=== PATIENT | female | born 1945 | race Caucasian/White ===

== ENCOUNTER 2019-01-10 11:00 | Outpatient (RCR) | payer MEDICARE ==
[~2019-01-10 11:00] MED LIST: ACYCLOVIR200 MG/5 M PO; ALENDRONATE70 MG PO; AMOXICILLIN875 MG PO; BACLOFEN10 MG PO; BACTRIM DS1 TAB PO; BETIMOL0.5 % OU; CEPHALEXIN500 MG PO; CETIRIZINE10 MG PO; CIPRO500 MG PO; CIPROFLOXACN500 MG PO; CORAL CALCIU1000 MG PO; CRANBERRY1 TAB OR; CURCUMIN XX; FISH OIL1000 MG PO; FISH OIL500 MG OR; FLONASE NASAL50 MCG; FLOXIN OTIC0.3 % AU; FLUARIX QUADRIV1 INJ IM; FLUOR OP OP; FLUOROMETHOL0.1 % OS; GLUCOSAMINE1 TA1 PO; KEFLEX500 M1 PO; LEVOTHYROXIN25 MC1 PO; LEVOTHYROXIN50 MC1 PO; LEVOTHYROXIN75 MC1 PO; LORTAB5 PO; MACRODANTIN100 MG PO; MULTIVITAM10 OR; MULTIVITAMIN PO; NAPROSYN500 MG PO; PRILOSEC20 MG PO; PROBIOTIC1 TAB PO; XALATAN 0.005%2.5 ML OP; ZYRTEC10 MG PO
== END 2019-01-10 12:00 | disposition home or self-care (01) ==
LOC: PT 11:00
PROVIDERS: ATTEND Physician Assistant
DX: M54.32 Sciatica, left side (principal)

== ENCOUNTER 2022-02-11 20:37 | Emergency (ER) | payer MEDICARE ==
[~2022-02-11] VITALS: Ht 162.6 cm; Wt 86.4 kg
[2022-02-11 22:13] LABS: HEMATOCRIT 38.7 % (37.0-47.0); HEMOGLOBIN 12.9 g/dl (12.0-16.0); IMMATURE GRANULOCYTES 0.2 % (0.0-5.0); MEAN CELL VOLUME 85.8 fL CALC (80.0-100.0); MEAN CORPUSCULAR HGB 28.6 pG CALC (26.0-32.0); MEAN CORPUSCULAR HGB CONC 33.3 g/dL CAL (32.0-36.0); NEUT# 3.69 thou/uL (2.00-7.15); RED BLOOD COUNT 4.51 mill/uL (4.20-5.60); RED CELL DISTRI WIDTH 15.4 % (11.5-15.5)
[2022-02-11 22:16] LABS: URINE BILIRUBIN - DIPSTICK NEGATIVE (NEGATIVE); URINE BLOOD DIPSTICK NEGATIVE (NEGATIVE); URINE COLOR YELLOW; URINE GLUCOSE - DIPSTICK NEGATIVE (NEGATIVE); URINE KETONE NEGATIVE (NEGATIVE); URINE LEUK ESTERASE NEGATIVE (NEGATIVE); URINE PH 7.5 (4.5-8.0); URINE PROTEIN - DIPSTICK NEGATIVE (NEG-TRACE); URINE UROBILINOGEN - DIPSTICK 0.2 E.U./dL (0.2)
[2022-02-11 22:23] LABS: URINE NITRITE - DIPSTICK NEGATIVE (Negative)
[2022-02-11 22:37] LABS: ALBUMIN 3.9 g/dL (3.2-5.0); ALKALINE PHOSPHATASE 86 u/l (38-126); AMYLASE 68 u/l (30-110); ANION GAP 11 (6-22 (CALC)); BILIRUBIN, TOTAL 0.6 mg/dL (0.0-1.4); BUN 13 mg/dL (8-23); BUN/CREATININE RATIO 17 (12-20 (CALC)); CARBON DIOXIDE 30 mmol/l (22-30); CHLORIDE 99 mmol/l (95-108); CREATININE 0.7 mg/dL (0.5-1.0); GFR > 60 ML/MIN (>=60 (CALC)); GFR FOR AFR.AMER. > 60 ML/MIN (>=60 (CALC)); LIPASE 71 u/l (23-300); POTASSIUM 3.7 mmol/l (3.5-5.1); SGOT/AST 23 u/l (9-36); SODIUM 136 mmol/l (137-146); TOTAL PROTEIN 7.3 g/dL (6.3-8.2)
[2022-02-11] MEDS ORDERED: TAMSULOSIN0.4 MG PO (22:50)
[2022-02-11 23:45] VITALS: BP 136/68
== END 2022-02-11 23:45 | disposition home or self-care (01) ==
LOC: ED 20:37
PROVIDERS: Emergency Medicine
DX: N20.0 Calculus of kidney (principal); I10 Essential (primary) hypertension; E03.9 Hypothyroidism, unspecified; Z87.442 Personal history of urinary calculi

== ENCOUNTER 2023-01-16 06:42 | Day surgery (SDC) | payer MEDICARE ==
[~2023-01-16] VITALS: Ht 162.6 cm; Wt 78.9 kg
[~2023-01-16 06:42] MED LIST changes: +CILOSTAZOL100 MG PO; +EZETIMIBE10 MG PO; +GABAPENTIN100 MG PO; +HYDROCHLOROT25 MG PO; +METRONIDAZOLE500 MG PO; +NORVASC PO; +TAMSULOSIN0.4 MG PO; +TRAMADOL HCL50 MG PO
[2023-01-16 12:01] VITALS: BP 123/66
== END 2023-01-16 11:49 | disposition home or self-care (01) ==
LOC: ORM 06:42
PROVIDERS: ATTEND Orthopaedic Surgery
PROC: 0SRD0J9 Replacement of Left Knee Joint with Synthetic Substitute, Cemented, Open Approach (ICD-10-PCS; principal; 2023-01-16)
DX: M17.0 Bilateral primary osteoarthritis of knee (principal); I10 Essential (primary) hypertension
CPT/HCPCS: J0131; J0690

== ENCOUNTER 2024-06-28 11:06 | Emergency (ER) | payer MEDICARE ==
[~2024-06-28] VITALS: Ht 162.6 cm; Wt 81.6 kg
[2024-06-28] VITALS (19 sets, daily range): BP systolic 76–115; BP diastolic 45–61
[2024-06-28] MEDS ORDERED: ONDANSETRON HCl 4 MG/2 ML SDV IV ONE (12:50)
[2024-06-28] MEDS ORDERED: SODIUM CHLORIDE 0.9% 1,000 ML IV ONE (12:50)
[2024-06-28 12:56] LABS: URINE BILIRUBIN - DIPSTICK Negative (NEGATIVE); URINE BLOOD DIPSTICK Moderate (NEGATIVE); URINE COLOR Yellow; URINE GLUCOSE - DIPSTICK Negative (NEGATIVE); URINE KETONE Negative (NEGATIVE); URINE LEUK ESTERASE Small (NEGATIVE); URINE NITRITE - DIPSTICK Positive (Negative); URINE PROTEIN - DIPSTICK Trace mg/dL (NEG-TRACE); URINE SPECIFIC GRAVITY 1.015; URINE UROBILINOGEN - DIPSTICK 0.2 E.U./dL (0.2)
[2024-06-28 12:57] LABS: URINE BACTERIA MANY hpf; URINE EPITHELIAL CELLS MANY EPI/hpf (0-FEW); URINE WBC 20-50 WBC/hpf (0-5)
[2024-06-28 13:02] LABS: BASO% 0.2 % (0-3); EOS% 0.7 % (0-8); HEMATOCRIT 39.5 % (37.0-47.0); HEMOGLOBIN 13.2 g/dl (12.0-16.0); IMMATURE GRANULOCYTES 0.5 % (0.0-5.0); LYMPH% 3.7 % (15-41); MEAN CORPUSCULAR HGB 29.7 pG CALC (26.0-32.0); MEAN CORPUSCULAR HGB CONC 33.4 g/dL CAL (32.0-36.0); MONO% 0.2 % (2-13); NEUT# 3.82 thou/uL (2.00-7.15); NEUT% 94.7 % (42-76); RED BLOOD COUNT 4.44 mill/uL (4.20-5.60); RED CELL DISTRI WIDTH 13.5 % (11.5-15.5)
[2024-06-28 13:10] LABS: CREATININE 0.9 mg/dL (0.5-1.0); POTASSIUM 3.4 mmol/l (3.5-5.1); TOTAL PROTEIN 6.9 g/dL (6.3-8.2)
[2024-06-28 13:13] LABS: BILIRUBIN, TOTAL 1.3 mg/dL (0.02-1.3)
[2024-06-28] MEDS ORDERED: FUROSEMIDE 40 MG/4 ML SDV IV ONE (14:50)
== END 2024-06-28 16:00 | disposition short-term general hospital (02) ==
LOC: ED 11:06
PROVIDERS: Nurse Practitioner
DX: N20.1 Calculus of ureter (principal); N39.0 Urinary tract infection, site not specified; B96.20 Unspecified Escherichia coli [E. coli] as the cause of diseases classified elsewhere; I11.0 Hypertensive heart disease with heart failure; I50.9 Heart failure, unspecified; R19.7 Diarrhea, unspecified; E03.9 Hypothyroidism, unspecified; Z87.442 Personal history of urinary calculi; Z20.822 Contact with and (suspected) exposure to COVID-19

== ENCOUNTER 2024-07-13 15:55 | Emergency (ER) | payer MEDICARE ==
[~2024-07-13] VITALS: Ht 162.6 cm; Wt 80.2 kg
[2024-07-13] VITALS (17 sets, daily range): BP systolic 92–150; BP diastolic 49–76
[2024-07-13] MEDS ORDERED: ACETAMINOPHEN 1,000 MG/100 ML VIAL IV ONE (16:15)
[2024-07-13 16:47] LABS: BASO% 0.6 % (0-3); HEMATOCRIT 38.9 % (37.0-47.0); IMMATURE GRANULOCYTES 0.2 % (0.0-5.0); LYMPH% 10.6 % (15-41); MEAN CELL VOLUME 88.8 fL CALC (80.0-100.0); MEAN CORPUSCULAR HGB 29.7 pG CALC (26.0-32.0); MEAN CORPUSCULAR HGB CONC 33.4 g/dL CAL (32.0-36.0); MONO% 8.7 % (2-13); NEUT# 8.23 thou/uL (2.00-7.15); NEUT% 78.9 % (42-76); RED BLOOD COUNT 4.38 mill/uL (4.20-5.60); RED CELL DISTRI WIDTH 13.4 % (11.5-15.5)
[2024-07-13 16:47] LABS: URINE BILIRUBIN - DIPSTICK Negative (NEGATIVE); URINE BLOOD DIPSTICK Small (NEGATIVE); URINE GLUCOSE - DIPSTICK Negative (NEGATIVE); URINE KETONE Negative (NEGATIVE); URINE PROTEIN - DIPSTICK 30 mg/dL (NEG-TRACE); URINE UROBILINOGEN - DIPSTICK 0.2 E.U./dL (0.2)
[2024-07-13 16:48] LABS: URINE BACTERIA MANY hpf; URINE COLOR Yellow; URINE LEUK ESTERASE Small (NEGATIVE); URINE NITRITE - DIPSTICK Positive (Negative); URINE SQUAMOUS EPITHELIAL CELL FEW EPI/hpf (0-FEW)
[2024-07-13 17:00] LABS: ALBUMIN 4.3 g/dL (3.2-5.0); BILIRUBIN, TOTAL 1.2 mg/dL (0.02-1.3); CREATININE 0.7 mg/dL (0.5-1.0); POTASSIUM 3.6 mmol/l (3.5-5.1); TOTAL PROTEIN 7.8 g/dL (6.3-8.2)
[2024-07-13] MEDS ORDERED: SODIUM CHLORIDE 0.9% 1,000 ML IV ONE (18:05)
[2024-07-13] MEDS ORDERED: BACTRIM DS1 TAB PO (19:57)
[2024-07-15] MEDS ORDERED: VANTIN200 M1 PO (12:16)
== END 2024-07-13 20:36 | disposition home or self-care (01) ==
LOC: ED 15:55
PROVIDERS: Nurse Practitioner Family
DX: N39.0 Urinary tract infection, site not specified (principal); B96.20 Unspecified Escherichia coli [E. coli] as the cause of diseases classified elsewhere; N20.0 Calculus of kidney; I10 Essential (primary) hypertension; E03.9 Hypothyroidism, unspecified; Z87.442 Personal history of urinary calculi; Z96.0 Presence of urogenital implants
CPT/HCPCS: J0131